=== PATIENT | male | born 1965 | race Caucasian/White ===

== ENCOUNTER → 2017-02-26 | Day surgery (SDC) | payer OTHER ==
[~2017-02-26] MED LIST: ASPIRIN81 M2 PO; LISINOPRIL5 MG PO; ROSUVASTATIN CA20 MG PO; VITAMIN D250000 UNIT PO
--- NOTE | ~2017-02-26 | OR ---
Unit #: [id number] #: [id number] Patient: SPENSER RICH JR [id number] [address] [address] [id number] MR#: [id number] NAME: SPENSER RICH JR ROOM: Date of Procedure: 02/26/2017 Admission Date: 02/26/2017 Surgeon: Earl Kam M.D. : 1965 Attending Physician: Earl Kam M.D. Primary Care Physician: Nolan Villagran Pa-C OPERATIVE REPORT PROCEDURES PERFORMED 1. Colonoscopy with snare polypectomy. 2. Colonoscopy with biopsy. INDICATIONS FOR PROCEDURE A 51-year-old gentleman with average risk for colorectal cancer, here for screening colonoscopy. MEDICATIONS Monitored anesthesia. POSTOPERATIVE FINDINGS 1. Significant inflammation along with some pseudomembranous formation in cecum and ascending colon. Biopsies taken. 2. 6 to 8 mm polyp, sigmoid colon, snared, and sent for histopathology. 3. Good prep. PLAN 1. Follow up on the pathology report. 2. Repeat colonoscopy in 5 years. DESCRIPTION OF PROCEDURE The patient was explained of the procedure, risks, and benefits along with the risks and benefits of anesthesia. He was brought to the endoscopy room. Propofol anesthesia was given. Bite block was placed. The scope was passed down the mouth into esophagus, stomach, duodenum, and distal duodenum. Findings as described. Biopsies taken. The scope was then carefully withdrawn. Polyp in the sigmoid colon was snared and sent for histopathology. I retroflexed in the rectum. Internal hemorrhoids noted. Gently, the scope was pulled out. He tolerated it well. Dictated by... Haily Harding/silvano TD: 02/26/2017 22:39 JOB #: [id number] CC: Phylicia Telles M.D. Unit #: [id number] #: [id number] Patient: SPENSER RICH JR OPERATIVE REPORT Page 1 of 1 X Earl Kam MD X PROCEDURE OPERATIVE NOTE
== END | disposition home or self-care (01) ==
LOC: COPS 08:35
DX: Z12.11 Encounter for screening for malignant neoplasm of colon (principal); D12.5 Benign neoplasm of sigmoid colon; K64.8 Other hemorrhoids; I10 Essential (primary) hypertension; E78.5 Hyperlipidemia, unspecified; Z79.82 Long term (current) use of aspirin; Z79.899 Other long term (current) drug therapy
CPT/HCPCS: 88305